=== PATIENT | male | born 1940 | race Hispanic/Latino ===

== ENCOUNTER 2018-12-05 10:49 | Emergency (ER) | payer OTHER ==
[~2018-12-05] VITALS: Ht 172.7 cm; Wt 90.7 kg
--- OUTSIDE RECORDS SUMMARY | 2018-12-05 10:53 | XMS REPORT | Continuity of Care Document ---
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 Name Role Phone [employer] Unavailable Unavailable Problems Problem Status Onset Date Classification Date Reported Comments Source HYPOTENSION Active 08/07/2018 [facility] ALTERED MENTAL STATUS, HYPOTHERMIA Active 08/07/2018 [facility] PNEUMONIA Active 03/27/2018 [facility] Severe protein-calorie malnutrition (Burger: less than 60% of standard weight) (disorder) Active Problem 08/11/2018 [facility] PNEUMONIA, UNSPECIFIED ORGANISM Active [facility] ALTERED MENTAL STATUS, UNSPECIFIED Active [facility] HYPOTHERMIA, INITIAL ENCOUNTER Active [facility] Medications Medication Details Route Status Patient Instructions Ordering Provider Order Date Source atorvastatin 40 mg, 1 tab, Route: PO, Drug form: TAB, Daily, Dosing Weight 81.818, kg, Start date: 08/09/18 9:00:00 CDT, Duration: 30 day, Stop date: 09/07/18 9:00:00 CDTNotes: (Same as: Lipitor) Inactive 08/09/2018 [facility] metoprolol tartrate 50 mg, 1 tab, Route: PO, Drug form: TAB, BID, Dosing Weight 81.818, kg, Start date: 08/08/18 21:00:00 CDT, Duration: 30 day, Stop date: 09/07/18 9:00:00 CDTNotes: (Same as: Lopressor) No Longer Active 08/09/2018 [facility] Calcium Carbonate 500 mg, 1 tab, Route: CHEW, Drug form: CHEWTAB, BID-Meals, Dosing Weight 81.818, kg, Start date: 08/08/18 17:00:00 CDT, Duration: 30 day, Stop date: 09/07/18 8:00:00 CDTNotes: (Same As: Tums) Calcium Carbonate 500 eq=512 mg elemental calcium Dose= mg calcium carbonate ( mg elemental calcium) No Longer Active 08/08/2018 [facility] Plavix 75 mg, 1 tab, Route: PO, Drug form: TAB, Daily, Dosing Weight 81.818, kg, Priority: NOW, Start date: 08/08/18 11:24:00 CDT, Duration: 30 day, Stop date: 09/07/18 9:00:00 CDTNotes: (Same As: Plavix) No Longer Active 08/08/2018 [facility] Aspirin 81 MG Enteric Coated Tablet 81 mg, 1 tab, Route: PO, Drug form: ECTAB, Daily, Dosing Weight 81.818, kg, Priority: NOW, Start date: 08/08/18 11:24:00 CDT, Duration: 30 day, Stop date: 09/07/18 9:00:00 CDTNotes: Do not crush or chew. (Same As: Ecotrin) No Longer Active 08/08/2018 [facility] Furosemide 40 MG Oral Tablet 40 mg=1 tab, PO, Daily, # 30 tab, 0 Refill(s) Active 08/08/2018 [facility] calcium carbonate 400 mg oral tablet, chewable 400 mg=1 tab, CHEW, BID, 0 Refill(s) Active 08/08/2018 [facility] lisinopril 2.5 mg oral tablet 2.5 mg=1 tab, PO, Daily, # 30 tab, 0 Refill(s) Active 08/08/2018 [facility] metoprolol tartrate 50 mg oral tablet 50 mg=1 tab, PO, BID, # 60 tab, 0 Refill(s) Active 08/08/2018 [facility] atorvastatin 40 mg oral tablet 40 mg=1 tab, PO, Daily, 0 Refill(s) Active 08/08/2018 [facility] Aspirin 81 MG Enteric Coated Tablet 81 mg=1 tab, PO, Daily, # 90 tab, 3 Refill(s) Active 08/08/2018 [facility] clopidogrel 75 MG Oral Tablet [Plavix] 75 mg=1 tab, PO, Daily, # 30 tab, 0 Refill(s) Active 08/08/2018 [facility] Trazodone 50 mg, 1 tab, Route: PO, Drug form: TAB, ONCE, Dosing Weight 81.818, kg, Start date: 08/07/18 23:10:00 CDT, Stop date: 08/07/18 23:10:00 CDTNotes: (Same As: Desyrel) Inactive 08/08/2018 [facility] Enoxaparin 30 mg, 0.3 mL, Route: SUB-Q, Drug form: INJ, [id number], Dosing Weight 77.273, kg, Start date: 08/07/18 18:33:00 CDT, Stop date: 09/05/18 18:33:00 CDTNotes: (Same as: Lovenox) No Longer Active 08/07/2018 [facility] Nitroglycerin 0.4 MG Sublingual Tablet [Nitrostat] 0.4 mg, 1 tab, Route: SL, Drug form: TAB, Q5Min, Dosing Weight 77.273, kg, PRN Chest Pain, Start date: 08/07/18 17:15:00 CDT, Duration: 3 doses or times, Stop date: Limited # of timesNotes: (Same as:Nitroquick, Nitrostat) "Do Not Crush" Sublingual tablet No Longer Active 08/07/2018 [facility] Terbutaline 0.25 mg, 0.25 mL, Route: SUB-Q, Drug form: INJ, Q6H, Dosing Weight 77.273, kg, PRN Bradycardia, Start date: 08/07/18 17:15:00 CDT, Duration: 30 day, Stop date: 09/06/18 17:14:00 CDTNotes: DO NOT USE IN ADMINISTRATIVE FELLOW AREA (Same As: Brethine) No Longer Active 08/07/2018 [facility] Lopressor 2.5 mg, 2.5 mL, Route: IVP, Drug form: INJ, Q3H, Dosing Weight 77.273, kg, PRN Tachycardia, Start date: 08/07/18 17:15:00 CDT, Duration: 30 day, Stop date: 09/06/18 17:14:00 CDTNotes: (Same as: Lopressor) Push over 2 minutes No Longer Active 08/07/2018 [facility] Morphine 2 mg, 1 mL, Route: IVP, Drug form: SOLN, Q2H, Dosing Weight 77.273, kg, PRN Chest Pain, Start date: 08/07/18 17:15:00 CDT, Duration: 30 day, Stop date: 09/06/18 17:14:00 CDT No Longer Active 08/07/2018 [facility] Hydralazine 10 mg, 0.5 mL, Route: IV, Drug form: INJ, Q4H, Dosing Weight 77.273, kg, PRN Hypertension, Start date: 08/07/18 17:15:00 CDT, Duration: 30 day, Stop date: 09/06/18 17:14:00 CDTNotes: (Same as: Apresoline) Push over 5 minutes No Longer Active 08/07/2018 [facility] Acetaminophen 325 MG / Hydrocodone Bitartrate 5 MG Oral Tablet [Rousseau 5/325] 1 tab, Route: PO, Drug Form: TAB, Dosing Weight 77.273, kg, Q6H, PRN Pain Score 4-6, Start date: 08/07/18 15:36:00 CDT, Duration: 30 day, Stop date: 09/06/18 15:35:00 CDTNotes: (Same as: Rousseau 325/5) Do not exceed 4gm/day of acetaminophen. No Longer Active 08/07/2018 [facility] Sodium Chloride 0.9% IV 1,000 mL 1,000 mL, Rate: 50 ml/hr, Infuse over: 20 hr, Route: IV, Dosing Weight 77.273 kg, Total Volume: 1,000, Start date: 08/07/18 15:34:00 CDT, Duration: 30 day, Stop date: 09/06/18 15:33:00 CDT, 1.92, m2 No Longer Active 08/07/2018 [facility] Dextrose 50% Syringe 25 gm, 50 mL, Route: IVP, Drug Form: INJ, Dosing Weight 77.273, kg, PRN, PRN Blood Glucose Results, Start date: 08/07/18 15:33:00 CDT, Duration: 30 day, Stop date: 09/06/18 15:32:00 CDT No Longer Active 08/07/2018 [facility] Glucagon 1 mg, Route: IM, Drug form: PDR/INJ, PRN, Dosing Weight 77.273, kg, PRN Blood Glucose Results, Start date: 08/07/18 15:33:00 CDT, Duration: 30 day, Stop date: 09/06/18 15:32:00 CDT No Longer Active 08/07/2018 [facility] Acetaminophen 650 mg, 2 tab, Route: PO, Drug form: TAB, Q4H, Dosing Weight 77.273, kg, PRN Pain 1-3/Temp > 100.4 F, Start date: 08/07/18 15:33:00 CDT, Duration: 30 day, Stop date: 09/06/18 15:32:00 CDTNotes: Do not exceed 4 gm/day. (Same as: Tylenol) No Longer Active 08/07/2018 [facility] Coricidin HBP Nighttime Multi-Symptom Cold 1 tab, PO, Q6H, PRN Cough, 0 Refill(s) Inactive 08/07/2018 [facility] rivaroxaban 15 MG Oral Tablet [Xarelto] 15 mg=1 tab, PO, QPM, 0 Refill(s) Inactive 08/07/2018 [facility] benazepril 40 mg oral tablet 40 mg=1 tab, PO, Daily, 0 Refill(s) Inactive 08/07/2018 [facility] Aspirin 325 mg, 1 tab, Route: PO, Drug form: TAB, ONCE, Dosing Weight 77.273, kg, Priority: STAT, Start date: 08/07/18 11:55:00 CDT, Stop date: 08/07/18 11:55:00 CDTNotes: Take with food. Inactive 08/07/2018 [facility] Keppra 1,000 mg, Route: IV, ONCE, Dosing Weight 77.273, kg, Start date: 08/07/18 10:24:00 CDT, Stop date: 08/07/18 10:24:00 CDTNotes: Same as Keppra Mix with 100 mL NS, LR or D5W MEDICATION WASTE Product Size: 500 mg Product Wasted: ___ mg Inactive 08/07/2018 [facility] Rocephin + sterile water 10 mL 1 gm, Route: IVP, ONCE, Dosing Weight 77.273, kg, Priority: STAT, Start date: 08/07/18 10:24:00 CDT, Stop date: 08/07/18 10:24:00 CDT, ABX Indication: Other (specify in Comments)Notes: (Same As: Rocephin). Use with 100 mL NS and infuse over 30 min MEDICATION WASTE Product Size: 1000 mg Product Wasted: ___ mg Inactive 08/07/2018 [facility] Sodium Chloride 0.9% (Bolus) IV 1,000 mL, 1000 ml/hr, Infuse Over: 1 hr, Route: IV, 1,000, Drug form: INJ, ONCE, Priority: STAT, Dosing Weight 77.273 kg, Start date: 08/07/18 10:24:00 CDT, Stop date: 08/07/18 10:24:00 CDT Inactive 08/07/2018 [facility] Saline Flush 0.9% 10 mL, Route: IVP, Drug Form: INJ, Dosing Weight 77.273, kg, PRN, PRN Line Flush, Start date: 08/07/18 10:24:00 CDT, Duration: 30 day, Stop date: 09/06/18 10:23:00 CDTNotes: Same as: BD Posiflush Sterile No Longer Active 08/07/2018 [facility] Allergies, Adverse Reactions, Alerts Substance Category Reaction Severity Reaction type Status Date Reported Comments Source No Known Medication Allergies Assertion Drug allergy [facility] Immunizations No Data Provided for This Section Results Order Name Results Value Reference Range Date Interpretation Comments Source CHEM PANEL Magnesium Lvl 2.4 1.8 - 2.4 08/09/2018 [facility] CHEM PANEL BUN 30 7 - 22 08/09/2018 [facility] CHEM PANEL Glucose Lvl 81 70 - 99 08/09/2018 [facility] CHEM PANEL Creatinine Lvl 1.68 0.50 - 1.40 08/09/2018 [facility] CHEM PANEL Calcium Lvl 8.3 8.5 - 10.5 08/09/2018 [facility] CHEM PANEL CO2 21 24 - 32 08/09/2018 [facility] CHEM PANEL AGAP 14.3 10.0 - 20.0 08/09/2018 [facility] CHEM PANEL eGFR 38 08/09/2018 Result Comment: The eGFR is calculated using the CKD-EPI formula. In most young, healthy individuals the eGFR will be >90 mL/min/1.73m2. The eGFR declines with age. An eGFR of 60-89 may be normal in some populations, particularly the elderly, for whom the CKD-EPI formula has not been extensively validated. Use of the eGFR is not recommended in the following populations:

Individuals with unstable creatinine concentrations, including patients and those with serious co-morbid conditions.

Patients with extremes in muscle mass or diet.

The data above are obtained from the National Kidney Disease Education Program (NKDEP) which additionally recommends that when the eGFR is used in patients with extremes of body mass index for purposes of drug dosing, the eGFR should be multiplied by the estimated BMI. [facility] CHEM PANEL Sodium Lvl 143 135 - 145 08/09/2018 [facility] CHEM PANEL Chloride Lvl 112 95 - 109 08/09/2018 [facility] CHEM PANEL Potassium Lvl 4.3 3.5 - 5.1 08/09/2018 [facility] CHEM PANEL Magnesium Lvl 2.2 1.8 - 2.4 08/08/2018 [facility] CHEM PANEL Bili Total 0.5 0.2 - 1.3 08/08/2018 [facility] CHEM PANEL Alk Phos 126 39 - 136 08/08/2018 [facility] CHEM PANEL AST 10 0 - 37 08/08/2018 [facility] CHEM PANEL ALT 20 0 - 65 08/08/2018 [facility] CHEM PANEL Albumin Lvl 3.1 3.5 - 5.0 08/08/2018 [facility] CHEM PANEL Bili Direct <0.1 0.0 - 0.3 08/08/2018 [facility] CHEM PANEL Bili Indirect >0.4 0.0 - 1.0 08/08/2018 [facility] CHEM PANEL A/G Ratio 0.9 0.7 - 1.6 08/08/2018 [facility] CHEM PANEL Globulin 3.6 2.7 - 4.2 08/08/2018 [facility] CHEM PANEL Total Protein 6.7 6.4 - 8.4 08/08/2018 [facility] ELECTROLYTES AGAP 13.0 10.0 - 20.0 08/08/2018 [facility] ELECTROLYTES Calcium Lvl 8.1 8.5 - 10.5 08/08/2018 [facility] ELECTROLYTES Chloride Lvl 111 95 - 109 08/08/2018 [facility] ELECTROLYTES CO2 22 24 - 32 08/08/2018 [facility] ELECTROLYTES Sodium Lvl 142 135 - 145 08/08/2018 [facility] ELECTROLYTES Potassium Lvl 4.0 3.5 - 5.1 08/08/2018 [facility] ELECTROLYTES BUN 43 7 - 22 08/08/2018 [facility] ELECTROLYTES Creatinine Lvl 1.97 0.50 - 1.40 08/08/2018 [facility] ELECTROLYTES eGFR 31 08/08/2018 Result Comment: The eGFR is calculated using the CKD-EPI formula. In most young, healthy individuals the eGFR will be >90 mL/min/1.73m2. The eGFR declines with age. An eGFR of 60-89 may be normal in some populations, particularly the elderly, for whom the CKD-EPI formula has not been extensively validated. Use of the eGFR is not recommended in the following populations:

Individuals with unstable creatinine concentrations, including patients and those with serious co-morbid conditions.

Patients with extremes in muscle mass or diet.

The data above are obtained from the National Kidney Disease Education Program (NKDEP) which additionally recommends that when the eGFR is used in patients with extremes of body mass index for purposes of drug dosing, the eGFR should be multiplied by the estimated BMI. [facility] ELECTROLYTES Glucose Lvl 74 70 - 99 08/08/2018 [facility] CARDIAC ENZYMES Troponin-I 0.12 0.00 - 0.40 08/08/2018 [facility] CARDIAC ENZYMES BNP 328 <=100 pg/mL 08/07/2018 [facility] CHEM PANEL Uric Acid 8.5 3.8 - 8.0 08/07/2018 [facility] CHEM PANEL Vitamin D, 25-OH, Total 39.1 30.0 - 100.0 08/07/2018 [facility] CHEM PANEL Phosphorus 3.7 2.5 - 4.5 08/07/2018 [facility] CHEM PANEL Magnesium Lvl 2.5 1.8 - 2.4 08/07/2018 [facility] HEMATOLOGY Sed Rate 31 0 - 15 08/07/2018 [facility] IMMUNOLOGY CRP, High Sensitivity 4.4 08/07/2018 [facility] IMMUNOLOGY Prealbumin 16.6 18.0 - 45.0 08/07/2018 [facility] LIPIDS VLDL 22 08/07/2018 [facility] LIPIDS Chol 104 <=199 mg/dL 08/07/2018 [facility] LIPIDS LDL (Calculated) 43 <=99 mg/dL 08/07/2018 [facility] LIPIDS Trig 111 <=149 mg/dL 08/07/2018 [facility] LIPIDS HDL 39 >=61 mg/dL 08/07/2018 [facility] LIPIDS CHD Risk 2.67 4.00 - 7.30 08/07/2018 [facility] SPECIAL CHEMISTRY Hgb A1C 6.1 <=5.6 % 08/07/2018 [facility] CARDIAC ENZYMES Troponin-I 0.11 0.00 - 0.40 08/07/2018 [facility] URINE AND STOOL UA Color Ltyellow 08/07/2018 [facility] URINE AND STOOL UA Urobilinogen <=1.0 mg/dL 0.1 - 1.0 08/07/2018 [facility] URINE AND STOOL UA Sq Epi None Seen 08/07/2018 [facility] URINE AND STOOL UA Hyal Cast 3 0 - 2 08/07/2018 [facility] URINE AND STOOL UA Leuk Est Negative (08/07/18 11:01 AM) Negative 08/07/2018 [facility] URINE AND STOOL UA Nitrite Negative (08/07/18 11:01 AM) Negative 08/07/2018 [facility] URINE AND STOOL UA WBC 1 0 - 5 08/07/2018 [facility] URINE AND STOOL UA RBC 1 0 - 2 08/07/2018 [facility] URINE AND STOOL UA Glucose Negative mg/dL Negative mg/dL 08/07/2018 [facility] URINE AND STOOL UA Protein Negative mg/dL Negative mg/dL 08/07/2018 [facility] URINE AND STOOL UA Bili Negative *NA* (08/07/18 11:01 AM) Negative 08/07/2018 [facility] URINE AND STOOL UA Ketones Negative mg/dL Negative mg/dL 08/07/2018 [facility] URINE AND STOOL UA Blood Negative (08/07/18 11:01 AM) Negative 08/07/2018 [facility] URINE AND STOOL UA Spec Grav 1.008 <=1.030 08/07/2018 [facility] URINE AND STOOL UA Turbidity Clear (08/07/18 11:01 AM) Clear 08/07/2018 [facility] URINE AND STOOL UA pH 6.0 5.0 - 8.0 08/07/2018 [facility] BLOOD BANK RESULTS Antibody Scrn Negative (08/07/18 10:34 AM) 08/07/2018 [facility] BLOOD BANK RESULTS ABO/Rh O POS 08/07/2018 [facility] CARDIAC ENZYMES Troponin-I 0.10 0.00 - 0.40 08/07/2018 [facility] CARDIAC ENZYMES BNP 192 <=100 pg/mL 08/07/2018 [facility] CHEM PANEL Lactic Acid Lvl 1.4 0.5 - 2.2 08/07/2018 [facility] CHEM PANEL Ammonia 18.0 <=45.0 uMol/L 08/07/2018 [facility] ELECTROLYTES AGAP 13.8 10.0 - 20.0 08/07/2018 [facility] ELECTROLYTES Globulin 3.9 2.7 - 4.2 08/07/2018 [facility] ELECTROLYTES B/C Ratio 19 6 - 25 08/07/2018 [facility] ELECTROLYTES A/G Ratio 0.9 0.7 - 1.6 08/07/2018 [facility] ELECTROLYTES eGFR 23 08/07/2018 Result Comment: The eGFR is calculated using the CKD-EPI formula. In most young, healthy individuals the eGFR will be >90 mL/min/1.73m2. The eGFR declines with age. An eGFR of 60-89 may be normal in some populations, particularly the elderly, for whom the CKD-EPI formula has not been extensively validated. Use of the eGFR is not recommended in the following populations:

Individuals with unstable creatinine concentrations, including patients and those with serious co-morbid conditions.

Patients with extremes in muscle mass or diet.

The data above are obtained from the National Kidney Disease Education Program (NKDEP) which additionally recommends that when the eGFR is used in patients with extremes of body mass index for purposes of drug dosing, the eGFR should be multiplied by the estimated BMI. [facility] ELECTROLYTES ALT 23 0 - 65 08/07/2018 [facility] ELECTROLYTES AST 11 0 - 37 08/07/2018 [facility] ELECTROLYTES Alk Phos 132 39 - 136 08/07/2018 [facility] ELECTROLYTES Bili Total 0.5 0.2 - 1.3 08/07/2018 [facility] ELECTROLYTES Chloride Lvl 109 95 - 109 08/07/2018 [facility] ELECTROLYTES Glucose Lvl 122 70 - 99 08/07/2018 [facility] ELECTROLYTES BUN 50 7 - 22 08/07/2018 [facility] ELECTROLYTES Potassium Lvl 4.8 3.5 - 5.1 08/07/2018 [facility] ELECTROLYTES Creatinine Lvl 2.59 0.50 - 1.40 08/07/2018 [facility] ELECTROLYTES Sodium Lvl 142 135 - 145 08/07/2018 [facility] ELECTROLYTES CO2 24 24 - 32 08/07/2018 [facility] ELECTROLYTES Total Protein 7.3 6.4 - 8.4 08/07/2018 [facility] ELECTROLYTES Calcium Lvl 8.5 8.5 - 10.5 08/07/2018 [facility] ELECTROLYTES Albumin Lvl 3.4 3.5 - 5.0 08/07/2018 [facility] HEMATOLOGY WBC 8.5 3.7 - 10.4 08/07/2018 [facility] HEMATOLOGY Hct 35.5 42.0 - 54.0 08/07/2018 [facility] RBC 3.81 4.70 - 6.10 08/07/2018 [facility] Hgb 11.7 14.0 - 18.0 08/07/2018 [facility] RDW 14.8 11.5 - 14.5 08/07/2018 [facility] MCV 93.3 80.0 - 94.0 08/07/2018 [facility] MCHC 32.8 32.0 - 36.0 08/07/2018 [facility] MCH 30.6 27.0 - 31.0 08/07/2018 [facility] MPV 8.7 7.4 - 10.4 08/07/2018 [facility] Platelet 188 133 - 450 08/07/2018 [facility] INR 1.01 0.85 - 1.17 08/07/2018 [facility] PT 13.1 12.0 - 14.7 08/07/2018 [facility] PTT 29.3 22.9 - 35.8 08/07/2018 [facility] Basophils 1.0 0.0 - 1.0 08/07/2018 [facility] Neutrophils # 5.2 1.5 - 8.1 08/07/2018 [facility] Eosinophils 8.6 0.0 - 4.0 08/07/2018 [facility] Monocytes 6.9 2.0 - 12.0 08/07/2018 [facility] Lymphocytes # 1.9 1.0 - 5.5 08/07/2018 [facility] Segs 61.1 45.0 - 75.0 08/07/2018 [facility] Lymphocytes 22.4 20.0 - 40.0 08/07/2018 [facility] Eosinophils # 0.7 0.0 - 0.5 08/07/2018 [facility] Basophils # 0.1 0.0 - 0.2 08/07/2018 [facility] Monocytes # 0.6 0.0 - 0.8 08/07/2018 [facility] TOXICOLOGY Ethanol Lvl <3 08/07/2018 [facility] TOXICOLOGY Etoh (%) <0.003 08/07/2018 [facility] Pathology Reports No Data Provided for This Section Diagnostic Reports Report Value Date Source Neck wo contrast MRA Patient Name: MARY CARMNE LEGGETT : 1940; Age: 77 years y/o Male MR: [id number] Study: Neck wo contrast MRA 08/08/2018 9:57 CDT Clinical Indication: - left vertebral artery retrograde flow on doppler; Comparison: Ultrasound of the carotids dated 08/07/2018 Technique: Magnetic resonance angiography of the neck was performed without gadolinium contrast with time of flight technique. 3-D maximum intensity projection images were obtained. FINDINGS: The aortic arch is not well assessed on this study due to noncontrast nature of the examination motion artifacts. Bilateral common carotid arteries are widely patent. Bilateral internal carotid arteries and carotid bulb regions are patent without significant stenosis by NASCET criteria. Bilateral external carotid arteries are patent. There is no flow signal in the left vertebral artery suggestive of severe stenosis or occlusion. There is retrograde filling of the V4 segment. Accurate characterization by a CTA of the neck would be beneficial. The source images show no evidence of carotid or vertebral artery dissection. Any reported ICA stenoses directly reference the distal internal carotid diameter as the denominator for stenosis measurement. (NASCET criteria) IMPRESSION: No flow signal in the V1-V3 segments left vertebral artery suggestive of severe stenosis and/or occlusion. There is retrograde filling V4 segment. The aortic arch and the left subclavian artery are not well assessed on this study. Complete characterization with a contrast-enhanced CTA of the neck is recommended. No cervical carotid artery stenosis. 08/08/2018 [facility] Carotid artery Doppler bilat US Procedure: Carotid Ultrasound. Clinical Indication: Syncope. Comparison: None. TECHNIQUE: Mckeon-scale, color Doppler and spectral Doppler of the carotid arteries was performed. Any reported ICA stenoses indirectly reference the distal internal carotid diameter as the denominator for the stenosis measurement, utilizing consensus panel criteria. FINDINGS: RIGHT: There is minimal plaque in the right common carotid artery, carotid bulb and right internal carotid artery. ICA PSV 75 cm/sec CCA PSV 119 cm/sec ICA/CCA ratio 0.63 Vertebral flow is antegrade. External carotid artery is patent. LEFT: There is minimal plaque in the left common carotid artery, carotid bulb and left internal carotid artery. ICA PSV 66 cm/sec CCA PSV 116 cm/sec ICA/CCA ratio 0.56 Vertebral flow is retrograde. External carotid artery is patent. IMPRESSION: 1. RIGHT: ICA stenosis <50 % by velocity criteria. 2. LEFT: ICA stenosis <50 % by velocity criteria. 3. Retrograde flow in the left vertebral artery. Consensus panel Doppler US criteria for diagnosis of ICA stenosis: Stenosis (%) ICA PSV (cm/sec) ICA/CCA ratio <50 <125 <2.0 50-69 125-230 2.0-4.0 >70 but less than >230 >4.0 near occlusion Near occlusion High, low, or Variable undetectable [id number] 08/07/2018 [facility] Brain wo contrast MRI EXAM: MRI BRAIN WITHOUT CONTRAST DATE: 08/07/2018 3:34 PM CDT INDICATION: - Syncope, vs stroke vs other ADDITIONAL INFORMATION AND CONTRAST: None. COMPARISON: CT head of 08/07/2018. TECHNIQUE: Multiplanar, mutisequence MRI of the brain without contrast. FINDINGS: Diffusion weighted images demonstrate no focal signal abnormality. No acute intracranial hemorrhage detected. Diffuse cerebral atrophy and advanced severe chronic small vessel ischemic change. Small old bilateral basal ganglia infarcts are present. The ventricles are normal in size and symmetric. No extra- axial fluid collection identified. Mckeon-white distinction is preserved. No mass lesion or midline shift detected. Slow flow/occlusion of the left transverse sinus and jugular vein. The remaining intracranial arterial and venous structures demonstrate normal flow voids. Mild mucosal thickening of the ethmoid air cells. The mastoid air cells are clear. IMPRESSION: 1. No definite acute territorial infarct or intracranial hemorrhage detected. 2. Diffuse cerebral atrophy and advanced severe chronic small vessel ischemic change. Small old bilateral basal ganglia infarcts are present. SL: [id number] 08/07/2018 [facility] Chest 1view DX Chest 1view DX 08/07/2018 10:24 CDT Ordering Physician: Harley Vela MD CLINICAL HISTORY: - ams; TECHNIQUE: AP view of the chest was obtained. COMPARISON: 03/31/2018 FINDINGS: Mild lingular scarring is present.. No radiographically detectable pneumothorax is present. Cardiomediastinal silhouette is unchanged. Bones are unchanged. IMPRESSION: No acute abnormality of the chest. Moderate cardiomegaly. SL: [id number] 08/07/2018 [facility] contrast CT STUDY: Brain wo contrast CT 08/07/2018 10:24 CDT Ordering Physician: Harley Vela MD Patient Name: MARY CARMEN LEGGETT MR: [id number] : 1940; Age: 77 years y/o Male Clinical Indication: Altered mental status. Seizure. Comparison: None TECHNIQUE: Multiple contiguous transaxial noncontrast CT images were obtained through the head. Coronal and sagittal reformatted images were prepared. CT imaging performed at this location utilizes radiation dose optimization techniques which include one or more of the following: -Automated exposure control -Adjustment of the mA and/or kV according to patient size -Use of iterative reconstruction technique DLP: 982.82 mGy-cm FINDINGS: BRAIN PARENCHYMA: 1. 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 2. No evidence of acute intracranial hemorrhage, mass lesion, mass effect, midline shift, or extra-axial fluid collection. 3. Old bilateral basal ganglia lacunar infarctions. 4. Subacute to old bilateral thalamic lacunar infarctions. 5. Mild to moderate calcification in both internal carotid artery siphons and vertebral arteries. VENTRICLES: The lateral ventricles, third ventricle, fourth ventricle, and basilar cisterns are appropriate for degree of atrophy present. PARANASAL SINUSES: Mild to moderate diffuse mucoperiosteal thickening in the ethmoid sinus. The visualized portions of the remaining paranasal sinuses are clear. MASTOIDS: Clear. ORBITS: Suspected old healed injury or postoperative change in the left globe and anterior orbital soft tissues. SOFT TISSUES: No significant abnormality. SKULL: No acute fracture or suspicious osseous lesion. IMPRESSION: 1. 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 2. Subacute to old bilateral thalamic lacunar infarctions. 3. Old bilateral basal ganglia lacunar infarctions. 4. No acute intracranial abnormality. 5. Mild chronic sinusitis. 6. Suspected old healed injury or postoperative change in the left globe and anterior orbital soft tissues. SL: [id number] 08/07/2018 [facility] Clinical Indication: - CKD; Comparison: None TECHNIQUE: Multiple longitudinal and transverse real time sonographic images of the kidneys and urinary bladder are obtained. FINDINGS: KIDNEY: The right kidney measures 8.5 x 3.8 x 3.6 cm. The left kidney measures 9 x 5 x 3.9 cm. The kidneys are normal in size, shape, contour, and position. The cortices are normal in thickness and the corticomedullary differentiation is maintained. There is no hydronephrosis, nephrolithiasis, or abnormal perinephric collections. A 1.6 x 1.8 x 1.8 cm simple cyst is present at the inferior pole the left kidney. BLADDER: Scanning through the pelvis reveals the bladder to be partially distended with anechoic urine. VASCULAR: The visualized portions of the aorta and IVC appear unremarkable. The bilateral proximal common iliac arteries are secured by bowel gas shadowing. ASCITES: No ascites noted. IMPRESSION: 1. A 1.8 cm simple left renal cyst. 2. No hydronephrosis. SL: [id number] 04/01/2018 [facility] 1view DX Clinical Indication: - SOB; Comparison: None FINDINGS: AP chest radiographs shows normal lung volumes with left lower lobe airspace disease. There is no effusion or pneumothorax. The heart size and pulmonary vasculature are normal. The trachea is midline. There are no clinically significant osseous abnormalities noted. There are sternal wires in stable position. IMPRESSION: 1. Mild left lower lobe atelectasis versus infiltrate. 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 COMPARISON: None. TECHNIQUE: Noncontrast helical CT imaging of the chest was performed. Axial, sagittal and coronal multiplanar reconstructions provided. CT Radiation Dose: NAJ=822.61 mGy-cm FINDINGS: LUNGS AND PLEURA: Nonspecific groundglass opacities are noted within the right lung apex. Small bilateral pleural effusions and associated atelectatic changes are visualized. A calcified granuloma is present within the left lower lobe. No pneumothorax. AIRWAY: The central airway is normal. SYSTEMIC VESSELS: There is atherosclerotic calcification of the aorta without evidence for aneurysmal dilatation. HEART: The heart is moderately enlarged, with prominent coronary artery calcification versus stenting. Prior coronary artery bypass grafting is also suspected. MEDIASTINUM: No significant mediastinal lymphadenopathy. VISUALIZED UPPER ABDOMEN: The patient is status post cholecystectomy. Mild nonspecific perinephric stranding is identified. A partially calcified lesion of the pancreatic tail is noted on series 2 image 88. OSSEOUS STRUCTURES: Median sternotomy wires. Degenerative changes of the thoracic spine without acute osseous abnormality. SOFT TISSUE: Subcutaneous lesion of the right shoulder, series 2 image 8. IMPRESSION: 1. Nonspecific groundglass opacities within the right upper lobe, likely related to focal pneumonitis. 2. Small bilateral pleural effusions with associated atelectatic change. 3. Moderate enlargement of the heart without evidence for a pericardial effusion. 4. Partially calcified lesion of the pancreatic tail, incompletely characterized. 5. Mild perinephric stranding, possibly related to medical renal disease. 6. Nonspecific subcutaneous lesion of the right anterior shoulder measuring 3 cm. SL: [id number] 03/27/2018 [facility] Consultation Notes No Data Provided for This Section Discharge Summaries No Data Provided for This Section History and Physicals No Data Provided for This Section Vital Signs Vital Sign Value Date Comments Source Systolic (mm Hg) 149 08/09/2018 [facility] Diastolic (mm Hg) 67 08/09/2018 [facility] Respitory Rate 17 08/09/2018 [facility] Heart Rate 58 08/09/2018 [facility] Temperature Oral (F) 97.5 F 08/09/2018 [facility] Respitory Rate 17 08/09/2018 [facility] Systolic (mm Hg) 127 08/09/2018 [facility] Diastolic (mm Hg) 62 08/09/2018 [facility] Temperature Oral (F) 97.6 F 08/09/2018 [facility] Heart Rate 96 08/09/2018 [facility] Weight 72.784 08/09/2018 [facility] Respitory Rate 18 08/09/2018 [facility] Systolic (mm Hg) 165 08/09/2018 [facility] Diastolic (mm Hg) 76 08/09/2018 [facility] Heart Rate 66 08/09/2018 [facility] Temperature Oral (F) 98.1 F 08/09/2018 [facility] Weight 81.818 08/07/2018 [facility] BMI Calculated 29.11 08/07/2018 [facility] Height 167.64 cm 08/07/2018 [facility] Height 167.64 cm 08/07/2018 [facility] BMI Calculated 27.5 08/07/2018 [facility] Weight 77.273 08/07/2018 [facility] Encounters Location Location Details Encounter Type Encounter Number Reason For Visit Attending Provider ADM Date DC Date Status Source [facility] Inpatient [id number] Casimiro Curtis 08/07/2018 08/10/2018 [facility] Procedures Procedure Code Date Perfomer Comments Source Bypass<sup>1</sup> [id number] heart [facility] Assessment and Plan Assessment and Plan Date Source Extracted from:Title: Clinical Document Author: Gricel Bolivar DO Date: 08/09/18 Progress Daily [facility] KranthiGricel Hoyt DO RM: 131 - 1P, SE C1A MARY CARMEN LEGGETT 77y (: 1940) M Attending: Casimiro Curtis MD Service: Internal Medicine PCP [facility]ASTON FELDMAN Reason for Admission: ALTERED MENTAL STATUS, HYPOTHERMIA Working DRG: Code status: None Specified=FULL CODE Current diet: Isolation: No Isolation/Standard Precautions Allergies: No Known Medication Allergies SUBJECTIVE SLEEPY BUT NO COMPLAINTS EXAM VS NOTED GENERAL: NAD LUNGS: Have a couple of rhonchi good deep breath. CARDIAC: RRR. chest well-healed bypass scar. ABDOMEN: Obese but bowel sounds are audible. EXTREMITIES: Intact with only trace edema. PLAN and TREATMENT MONITOR FLUID STATUS CONSIDER ANTICOAG BUT THINK DANGER OF FALL MORE THAN PAFIB CVA. WITH MENTAL STATUS NOT A GOOD CANDIDATE FOR ICD. DIAGNOSES and PROBLEMS ? SYNCOPE HX CVA SEVERE STENOSIS LEFT VERTEBRAL A DEMENTIA HTN CRD STAGE 3 PAFIB MOD DILATED LA 4.8CM CHRONIC SEVERE LV SYSTOLIC and DIASTOLIC DYSFUNCTION I50.43 EF 2 MILD TRICUSPID VALVE INSUFFICIENCY WITH NORMAL PASP=33.28 [facility] ESSENTIALLY UNCHANGED FROM 03/28/2018 STUDY ECHO 08/08/2018 1) SEVERE LV SYSTOLIC AND DIASTOLIC DYSFUNCTION 2) EJECTION FRACTION 23% WITH SEVERE GLOBAL HYPOKINESIS 3) MODERATELY DILATED LEFT ATRIUM LA 4.8 CM 4) TRACE MITRAL VALVE INSUFFICIENCY 5) MILD TRICUSPID VALVE INSUFFICIENCY 6) NORMAL PASP=33.28 [facility] 7) NO VALVULAR STENOSIS 8) ESSENTIALLY UNCHANGED FROM 03/28/2018 STUDY Ready for Discharge (Yes/No)? Cortes still necessary (Yes/No): Line still necessary (Yes/No): 24hr Labs 08/09 0510 Glucose Lvl 81 BUN 30 H Creatinine Lvl 1.68 H Sodium Lvl 143 Potassium Lvl 4.3 Chloride Lvl 112 H CO2 21 L AGAP 14.3 Calcium Lvl 8.3 L eGFR 38 Magnesium Lvl 2.4 08/07 1833 TSH 1.400 T3 Uptake 31 T4 6.5 FTI 2.0 Vitamin D, 25-OH, Tota 39.1 CRP, High Sensitivity 4.4 Prealbumin 16.6 L Vitals Tmp(F) Pulse BP RR SpO2 FIO2 08/09 07:27 98.1 66 165/76 18 97 --- 08/09 03:24 98.4 78 149/84 18 97 --- 08/08 23:34 98.7 66 150/83 18 98 --- 08/08 19:36 98.3 71 164/75 18 99 --- 08/08 15:43 98.4 60 150/75 17 99 --- 24 Hr Tmax: 98.7F (37.06c) at 08/08 23:34 Vital Signs are the last 5 in the past 48 hours. Date Wt(kg) Wt(lb) Ht(cm) Ht(in) Method 08/07 (initial) 77.27 170.00 Estimated 08/07 167.64 66.00 Stated I&O Record In Out Bal 08/08 24hr Tot 500 0 500 08/07 24hr Tot 1950 0 1950 Medications (18) Active Scheduled Meds (6): 08/08/18 aspirin (aspirin 81 mg tablet, enteric coated) 81 mg PO Daily 08/09/18 atorvastatin 40 mg PO Daily 08/08/18 calcium carbonate 500 mg CHEW BID-Meals 08/08/18 clopidogrel (Plavix) 75 mg PO Daily 08/07/18 enoxaparin 30 mg SUB-Q [id number] 08/08/18 metoprolol (metoprolol tartrate) 50 mg PO BID Unscheduled Meds: None PRN Meds (11): 08/07/18 Dextrose 50% in Water IV (Dextrose 50% Syringe) 12.5 gm IVP PRN 08/07/18 Dextrose 50% in Water IV (Dextrose 50% Syringe) 25 gm IVP PRN 08/07/18 acetaminophen-hydrocodone (Rousseau 5/325 oral tablet) 1 tab PO Q6H 08/07/18 acetaminophen 650 mg PO Q4H 08/07/18 glucagon 1 mg IM PRN 08/07/18 hydrALAZINE 10 mg IV Q4H 08/07/18 metoprolol (Lopressor) 2.5 mg IVP Q3H 08/07/18 morphine Sulfate 2 mg IVP Q2H 08/07/18 nitroglycerin (Nitrostat 0.4 mg sublingual tablet) 0.4 mg SL Q5Min 08/07/18 sodium chloride (Saline Flush 0.9%) 10 mL IVP PRN 08/07/18 terbutaline 0.25 mg SUB-Q Q6H One Time Meds (1): 08/07/18 (Completed) trazodone 50 mg PO ONCE Continuous Infusions: None Extracted from:Title: Clinical Document Author: Adrian Cao MD Date: 08/09/18 VASCULAR SURGERY CONSULT NOTE Adrian Cao MD FACS DATE OF CONSULT:08/09/2018 DATE OF : 1940 REFERRING PHYSICIAN:Dr Lin Montoya REASON FOR THE CONSULT:Vertebral artery occlusion HISTORY OF PRESENT ILLNESS: This is a 77 year old male with history of mild dementia, CHF and CAD. He has history of CABG and coronary stents. He was noted to have syncope and was admitted for workup. Left vertebral artery occlusion was noted. He denies current dizziness or difficulty in balance. He denies TIAs or amaurosis fugax REVIEW OF SYSTEM: RESPIRATORY: No cough, no dyspnea CARDIOVASCULAR: No chest pain or pressure. No palpitations GASTROINTESTINAL: No dysphagia, odynophagia, bright blood per rectum, heartburn, diarrhea or constipation. No nausea, vomiting, or hemetemesis MUSCULOSKELETAL: No myalgias, arthralgias, joint swelling. NEUROLOGICAL: No vertigo or disturbance of balance or coordination.No motor or sensory complaints. No headache.No amaurosis fugax, no TIAs GENITOURINARY: No dysuria, urgency or urinary frequency. No incontinence. DERMATOLOGIC: No complaint of skin lesions or rashes. No change ALLERGIES: Allergies (1) Active Reaction No Known Medication Allergies None documented MEDICATION LIST: Scheduled Meds (6): 08/08/18 aspirin (aspirin 81 mg tablet, enteric coated) 81 mg PO Daily 08/09/18 atorvastatin 40 mg PO Daily 08/08/18 calcium carbonate 500 mg CHEW BID-Meals 08/08/18 clopidogrel (Plavix) 75 mg PO Daily 08/07/18 enoxaparin 30 mg SUB-Q [id number] 08/08/18 metoprolol (metoprolol tartrate) 50 mg PO BID PAST MEDICAL HISTORY No qualifying data available PAST SURGICAL HISTORY: Bypass SOCIAL HISTORY: Alcohol Details: Past, Type Beer. Tobacco Details: Use: Former smoker. Started age 16.0 Years. Stopped age 68 Years. Previous treatment: None. Ready to change: No. Household tobacco concerns: No. Tobacco smoke exposure: None. Did the Patient Smoke Cigarettes Anytime During the Last 365 Days? No. Cessation Counseling Provided? No. PHYSICAL EXAM: Vitals Tmp(F) Pulse BP RR SpO2 FIO2 08/09 07:27 98.1 66 165/76 18 97 --- 08/09 03:24 98.4 78 149/84 18 97 --- 08/08 23:34 98.7 66 150/83 18 98 --- 08/08 19:36 98.3 71 164/75 18 99 --- 08/08 15:43 98.4 60 150/75 17 99 --- 24 Hr Tmax: 98.7F (37.06c) at 08/08 23:34 Vital Signs are the last 5 in the past 48 hours. HEAD AND NECK:NCAT EYES:EOMI CHEST:CTA CARDIAC:RRR ABDOMEN:Soft VASCULAR EXAM:Well perfused extremities LABORATORY DATA: Labs (Last four charted values) WBC 8.5 (AUGUST 07) Hgb L 11.7 (AUGUST 07) Hct L 35.5 (AUGUST 07) Plt 188 (AUGUST 07) Na 143 (AUGUST 09) 142 (AUGUST 08) 142 (AUGUST 07) K 4.3 (AUGUST 09) 4.0 (AUGUST 08) 4.8 (AUGUST 07) CO2 L 21 (AUGUST 09) L 22 (AUGUST 08) 24 (AUGUST 07) Cl H 112 (AUGUST 09) H 111 (AUGUST 08) 109 (AUGUST 07) Cr H 1.68 (AUGUST 09) H 1.97 (AUGUST 08) H 2.59 (AUGUST 07) BUN H 30 (AUGUST 09) H 43 (AUGUST 08) H 50 (AUGUST 07) Glucose Random 81 (AUGUST 09) 74 (AUGUST 08) H 122 (AUGUST 07) Mg 2.4 (AUGUST 09) 2.2 (AUGUST 08) H 2.5 (AUGUST 07) Phos 3.7 (AUGUST 07) Ca L 8.3 (AUGUST 09) L 8.1 (AUGUST 08) 8.5 (AUGUST 07) PT 13.1 (AUGUST 07) INR 1.01 (AUGUST 07) PTT 29.3 (AUGUST 07) Troponin 0.12 (AUGUST 07) 0.11 (AUGUST 07) 0.10 (AUGUST 07) RADIOLOGIC AND VASCULAR IMAGING: MRA neck: IMPRESSION: No flow signal in the V1-V3 segments left vertebral artery suggestive of severe stenosis and/or occlusion. There is retrograde filling V4 segment. The aortic arch and the left subclavian artery are not well assessed on this study. Complete characterization with a contrast-enhanced CTA of the neck is recommended. No cervical carotid artery stenosis. MRI Brain: IMPRESSION: 1. No definite acute territorial infarct or intracranial hemorrhage detected. 2. Diffuse cerebral atrophy and advanced severe chronic small vessel ischemic change. Small old bilateral basal ganglia infarcts are present. Carotid duplex scan: IMPRESSION: 1. RIGHT: ICA stenosis <50 % by velocity criteria. 2. LEFT: ICA stenosis <50 % by velocity criteria. 3. Retrograde flow in the left vertebral artery. ASSESSMENT AND PLAN: 77 year old male with left vertebral artery occlusion on MRA neck scan. I recommend medical management with antiplatelet therapy. Extracted from:Title: General Admission H&P * Author: Casimiro Curtis MD Date: 08/07/18 Impression and Plan Syncopal Episodes Tremors/Shaking Episodes DIMPLE vs DIMPLE on CKD Hypotension Hypothermia Hx of CAD s/p CABG Hx of CHF, Systolic and Diastolic Dysfunction PVD Afib Hx of CVA HTN HLD Plan: -Patient back to baseline -Tele -O2 prn -Trend CE, Reviewed EKG -start pain meds prn -Consult Neuro -Consult Cards -MRI, Carotid U/S, Echo ordered -Monitor Vitals -Low Rate IV Fluids given hx of CHF -F/u Blood Cx, Urine Cx -Consult PT/OT -Reviewed and Ordered Labs -Reviewed and Ordered Imaging -Reconcile Home Meds DVT PPX: Lovenox Patient seen by Casimiro Curtis MD Internal Medicine Hospitalist 08/10/2018 [facility] Plan of Care No Data Provided for This Section Social History Social History Date Source Social History TypeResponse Alcohol Past, Type Beer. Smoking Status Former smoker; Previous treatment: None; Ready to change: No; Concerns about tobacco use in household: No; Exposure to Tobacco Smoke None; Cigarette Smoking Last 365 Days No; Reg Smoking Cessation Counseling No; Started at age: 16.0; Stopped at age: 68; entered on: 08/07/18 08/08/2018 [facility] Family History No Data Provided for This Section Advance Directives No Data Provided for This Section Functional Status No Data Provided for This Section
--- OUTSIDE RECORDS SUMMARY | 2018-12-05 10:53 | XMS REPORT ---
Author Author [facility] Address Unknown Phone Unavailable Care Team Providers Care [employer] Operator Name Role Phone MICHAEL ARCE NATHALIE Unavailable LISS JACKSON M.D. Unavailable Unavailable ELIO SAMPSON M.D. Unavailable Unavailable Problems This patient has no known problems. Allergies, Adverse Reactions, Alerts This patient has no known allergies or adverse reactions. Medications This patient has no known medications. Encounters Start Date/Time End Date/Time Encounter Type Admission Type Attending Clinicians Care Facility Care Department Encounter ID 2018-08-07 12:46:00 2018-08-07 10:03:00 Inpatient E [facility] [id number] 2016-05-18 11:01:00 2016-05-18 11:01:00 Outpatient [facility] [id number] 2016-05-08 17:20:00 2016-05-08 17:20:00 Outpatient [facility] [id number] Results Test Description Test Time Test Comments Text Results Atomic Results Result Comments NM Lung Vent/Perf Imaging 2018-03-05 10:43:21 Patient: MARY CARMEN LEGGETT Date/Time03/05/2018 10:20 CSTReason for ExamDyspneaReportHistory: Shortness of breathNUCLEAR MEDICINE VENTILATION AND PERFUSION LUNG SCAN:COMPARISON: Chest x-ray done todayThe ventilation study was performed with 12 mCi of Xe133 gas.The perfusion study was performed with 5.4 mCi of Tc 99m MAA.There is uniform distribution of activity and uniform washout of the activity throughout both lungs, on the ventilation study.There is uniform distribution of activity throughout both lungs on the perfusion study. No perfusion defects are noted.IMPRESSION:Negative study Final Dictated by: MD Bennett Ramon JulioDictated DT/TM: 03/05/2018 10:42 amSigned by: MD Bennett Ramon JulioSigned (Electronic Signature): 03/05/2018 10:43 am XR Chest 2 Views 2018-03-05 10:16:51 Patient: MARY CARMEN LEGGETT Date/Time03/05/2018 10:04 CSTReason for ExamCongestionReportCHEST 2 VIEWS:HISTORY: Cough, congestionCOMPARISON: 03/03/2018The cardiac silhouette remains mildly enlarged. The mediastinum is unremarkable. Sternotomy sutures are again seen.No new infiltrates are seen in the lungs. There is mild pulmonary vascular engorgement.The bony architecture appears intact, where adequately seen.IMPRESSION:Cardiomegaly and mild pulmonary vascular congestion. Final Dictated by: MD Bennett Ramon JulioDictcelestina DT/TM: 03/05/2018 10:16 amSigned by: MD Bennett Ramon JulioSigned (Electronic Signature): 03/05/2018 10:[address] Brain/Head w/o Contrast 2018-03-03 11:07:23 Patient: MARY CARMEN LEGGETT Date/Time03/03/2018 10:59 CSTReason for ExamStrokeReportTHE OFFICIAL RADIOLOGY REPORT BEGINS BELOW THIS LINEEXAM: Cranial CT.TECHNIQUE: Volumetric helical data acquisition with multiplanar reformations. ALARA principle was utilized. No IV contrast.HISTORY: CVA-like symptoms, weakness, malaise.COMPARISON: 016.FINDINGS: Moderate cerebral atrophy is present. Stable lacunar infarct involving the left basal ganglia is present. Extensive confluent low attenuating changes are seen the periventricular and deep white matter consistent with microangiopathy. No intra-axial mass or hemorrhage or extra-axial fluid collection is seen. No ventricular displacement, effacement, or enlargement is present. Bone windows demonstrate no evidence of destructive lesion or fracture involving the calvarium. Left orbital prosthesis is noted.IMPRESSION:1. No acute intracranial changes are seen when compared with prior study.2. Extensive stable chronic ischemic changes.THE OFFICIAL RADIOLOGY REPORT ENDS ABOVE THIS LINE Final Dictated by: MD Gabrielle, Ryan Nieto DT/TM: 03/03/2018 11:05 amSigned by: MD Anthony William BerrySigned (Electronic Signature): 03/03/2018 11:07 am XR Chest 1 View Frontal 2018-03-03 10:45:46 Patient: MARY CARMEN LEGGETT Date/Time03/03/2018 10:32 CSTReason for ExamShortness of breathReportTHE OFFICIAL RADIOLOGY REPORT BEGINS BELOW THIS LINEEXAM: Chest, 1 View at 10:22.TECHNIQUE: AP upright view.COMPARISON: 02/21/2017.HISTORY: Shortness of breath, cough.FINDINGS: Cardiac size is at the upper limits of normal for AP technique. No congestive changes are seen. No consolidative infiltrate or pleural effusion is identified. Sternotomy wires are present.IMPRESSION: No acute appearing cardiopulmonary changes are seen when compared with prior study.THE OFFICIAL RADIOLOGY REPORT ENDS ABOVE THIS LINE Final Dictated by: MD Gabrielle, Ryan Llamasctcelestina DT/TM: 03/03/2018 10:43 amSigned by: MD Gabrielle, Renzo Zavalagned (Electronic Signature): 03/03/2018 10:45 am XR CHEST SGL 1V, FRONTAL 2016-05-08 14:49:30 Information: Chest pain, dyspnea, hypertension, median sternotomy andcardiac stents cardiac transplantChest portable one viewIn comparison to the prior chest x-ray dated 04/20/2016 the heart remainsenlarged. There has been interval increase in the central pulmonaryvascular congestion and bilateral diffuse perihilar and lower lobeinfiltrates with which are greater on the left. There are smallbilateral p leural effusions. Postoperative median sternotomy changes areagain noted. There are overlying cardiac monitoring leads.IMPRESSION:1. Findings suggesting worsening cardiac decompensation/volume overloadchanges with interstitial pulmonary edema and basilar atelectasischanges greater on the left2. Small bilateral pleural effusions3. Postop median sternotomy
--- OUTSIDE RECORDS SUMMARY | 2018-12-05 10:53 | XMS REPORT | Summary of Care ---
Author Author [facility] Organization [facility] Address Unknown Phone Unavailable Encounter HQ Sofie(FIN) [id number] Date(s): 08/07/18 - 08/09/18 [facility] [address] [place] [address]- [phone] Discharge Disposition: Home or Self Care Attending Physician: Casimiro Curtis MD Admitting Physician: Casimiro Curtis MD Vital Signs 1 2 3 Most recent to oldest [Reference Range]: 167.64 cm (08/07/18 5:34 PM) 167.64 cm (08/07/18 10:05 AM) Height 97.5 DegF (08/09/18 3:04 PM) 97.6 DegF (08/09/18 11:34 AM) 98.1 DegF (08/09/18 7:27 AM) Temperature Oral [96.4-99.1 DegF] 149/67 mmHg *HI* (08/09/18 3:04 PM) 127/62 mmHg (08/09/18 11:34 AM) 165/76 mmHg *HI* (08/09/18 7:27 AM) Blood Pressure [90-140/60-90 mmHg] 17 BRMIN (08/09/18 3:04 PM) 17 BRMIN (08/09/18 11:34 AM) 18 BRMIN (08/09/18 7:27 AM) Respiratory Rate [14-20 BRMIN] 58 bpm *LOW* (08/09/18 3:04 PM) 96 bpm (08/09/18 11:34 AM) 66 bpm (08/09/18 7:27 AM) Peripheral Pulse Rate [60-100 bpm] 72.784 kg (08/09/18 9:00 AM) 81.818 kg (08/07/18 5:34 PM) 77.273 kg (08/07/18 10:05 AM) Weight 29.11 m2 (08/07/18 5:34 PM) 27.5 m2 (08/07/18 10:05 AM) Body Mass Index Problem List Condition Effective Dates Status Health Status Informant Severe Active Acute ; protein-calorie malnutrition(Confirm ed) Allergies, Adverse Reactions, Alerts No Known Medication Allergies Medications acetaminophen 650 mg, 2 tab, Route: PO, Drug form: TAB, Q4H, Dosing Weight 77.273, kg, PRN Troy n 1-3/Temp > 100.4 F, Start date: 08/07/18 15:33:00 CDT, Duration: 30 day, Stop date: 09/06/18 15:32:00 CDT Notes: Do not exceed 4 gm/day. (Same as: Tylenol) Start Date: 08/07/18 Stop Date: 08/09/18 Status: Discontinued aspirin 325 mg, 1 tab, Route: PO, Drug form: TAB, ONCE, Dosing Weight 77.273, kg, Priori ty: STAT, Start date: 08/07/18 11:55:00 CDT, Stop date: 08/07/18 11:55:00 CDT Notes: Take with food. Start Date: 08/07/18 Stop Date: 08/07/18 Status: Completed aspirin 81 mg tablet, enteric coated 81 mg, 1 tab, Route: PO, Drug form: ECTAB, Daily, Dosing Weight 81.818, kg, Prio rity: NOW, Start date: 08/08/18 11:24:00 CDT, Duration: 30 day, Stop date: 09/07 9:00:00 CDT Notes: Do not crush or chew.(Same As: Ecotrin) Start Date: 08/08/18 Stop Date: 08/09/18 Status: Discontinued aspirin 81 mg tablet, enteric coated 81 mg=1 tab, PO, Daily, # 90 tab, 3 Refill(s) Start Date: 08/08/18 Status: Ordered atorvastatin 40 mg, 1 tab, Route: PO, Drug form: TAB, Daily, Dosing Weight 81.818, kg, Start date: 08/09/18 9:00:00 CDT, Duration: 30 day, Stop date: 09/07/18 9:00:00 CDT Notes: (Same as: Lipitor) Start Date: 08/09/18 Stop Date: 08/09/18 Status: Discontinued atorvastatin 40 mg oral tablet 40 mg=1 tab, PO, Daily, 0 Refill(s) Start Date: 08/08/18 Status: Ordered benazepril 40 mg oral tablet 40 mg=1 tab, PO, Daily, 0 Refill(s) Start Date: 08/07/18 Stop Date: 08/07/18 Status: Completed calcium carbonate 500 mg, 1 tab, Route: CHEW, Drug form: CHEWTAB, BID-Meals, Dosing Weight 81.818, kg, Start date: 08/08/18 17:00:00 CDT, Duration: 30 day, Stop date: 09/07/18 8: 00:00 CDT Notes: (Same As: Tums)Calcium Carbonate 500 hq=120 mg elemental calcium Dose=_ mg calcium carbonate ( mg elemental calcium) Start Date: 08/08/18 Stop Date: 08/09/18 Status: Discontinued calcium carbonate 400 mg oral tablet, chewable 400 mg=1 tab, CHEW, BID, 0 Refill(s) Start Date: 08/08/18 Status: Ordered Coricidin HBP Nighttime Multi-Symptom Cold 1 tab, PO, Q6H, PRN Cough, 0 Refill(s) Start Date: 08/07/18 Stop Date: 08/07/18 Status: Completed Dextrose 50% Syringe 25 gm, 50 mL, Route: IVP, Drug Form: INJ, Dosing Weight 77.273, kg, PRN, PRN Blo od Glucose Results, Start date: 08/07/18 15:33:00 CDT, Duration: 30 day, Stop da te: 09/06/18 15:32:00 CDT Start Date: 08/07/18 Stop Date: 08/09/18 Status: Discontinued Dextrose 50% Syringe 12.5 gm, 25 mL, Route: IVP, Drug Form: INJ, Dosing Weight 77.273, kg, PRN, PRN B lood Glucose Results, Start date: 08/07/18 15:33:00 CDT, Duration: 30 day, Stop date: 09/06/18 15:32:00 CDT Start Date: 08/07/18 Stop Date: 08/09/18 Status: Discontinued enoxaparin 30 mg, 0.3 mL, Route: SUB-Q, Drug form: INJ, [id number], Dosing Weight 77.273, kg, Start date: 08/07/18 18:33:00 CDT, Stop date: 09/05/18 18:33:00 CDT Notes: (Same as: Lovenox) Start Date: 08/07/18 Stop Date: 08/09/18 Status: Discontinued furosemide 40 mg oral tablet 40 mg=1 tab, PO, Daily, # 30 tab, 0 Refill(s) Start Date: 08/08/18 Status: Ordered glucagon 1 mg, Route: IM, Drug form: PDR/INJ, PRN, Dosing Weight 77.273, kg, PRN Blood Gl ucose Results, Start date: 08/07/18 15:33:00 CDT, Duration: 30 day, Stop date: 0 09/06/18 15:32:00 CDT Start Date: 08/07/18 Stop Date: 08/09/18 Status: Discontinued hydrALAZINE 10 mg, 0.5 mL, Route: IV, Drug form: INJ, Q4H, Dosing Weight 77.273, kg, PRN Hyp ertension, Start date: 08/07/18 17:15:00 CDT, Duration: 30 day, Stop date: 09/06 17:14:00 CDT Notes: (Same as: Apresoline)Push over 5 minutes Start Date: 08/07/18 Stop Date: 08/09/18 Status: Discontinued Keppra + Sodium Chloride 0.9% IV 100 mL 1,000 mg, Route: IV, ONCE, Dosing Weight 77.273, kg, Start date: 08/07/18 10:24: 00 CDT, Stop date: 08/07/18 10:24:00 CDT Notes: Same as KeppraMix with 100 mL NS, LR or D5W MEDICATION WASTE Prod uct Size: 500 mgProduct Wasted: ___ mg Start Date: 08/07/18 Stop Date: 08/07/18 Status: Completed lisinopril 2.5 mg oral tablet 2.5 mg=1 tab, PO, Daily, # 30 tab, 0 Refill(s) Start Date: 08/08/18 Status: Ordered Lopressor 2.5 mg, 2.5 mL, Route: IVP, Drug form: INJ, Q3H, Dosing Weight 77.273, kg, PRN T achycardia, Start date: 08/07/18 17:15:00 CDT, Duration: 30 day, Stop date: 08/20 17:14:00 CDT Notes: (Same as: Lopressor)Push over 2 minutes Start Date: 08/07/18 Stop Date: 08/09/18 Status: Discontinued metoprolol tartrate 50 mg, 1 tab, Route: PO, Drug form: TAB, BID, Dosing Weight 81.818, kg, Start da te: 08/08/18 21:00:00 CDT, Duration: 30 day, Stop date: 09/07/18 9:00:00 CDT Notes: (Same as: Lopressor) Start Date: 08/08/18 Stop Date: 08/09/18 Status: Discontinued metoprolol tartrate 50 mg oral tablet 50 mg=1 tab, PO, BID, # 60 tab, 0 Refill(s) Start Date: 08/08/18 Status: Ordered morphine Sulfate 2 mg, 1 mL, Route: IVP, Drug form: SOLN, Q2H, Dosing Weight 77.273, kg, PRN Ches t Pain, Start date: 08/07/18 17:15:00 CDT, Duration: 30 day, Stop date: 09/06/18 17:14:00 CDT Start Date: 08/07/18 Stop Date: 08/09/18 Status: Discontinued Nitrostat 0.4 mg sublingual tablet 0.4 mg, 1 tab, Route: SL, Drug form: TAB, Q5Min, Dosing Weight 77.273, kg, PRN C hest Pain, Start date: 08/07/18 17:15:00 CDT, Duration: 3 doses or times, Stop d ate: Limited # of times Notes: (Same as:Nitroquick, Nitrostat)"Do Not Crush" Sublingual tablet Start Date: 08/07/18 Stop Date: 08/09/18 Status: Discontinued [place] 5/325 oral tablet 1 tab, Route: PO, Drug Form: TAB, Dosing Weight 77.273, kg, Q6H, PRN Pain Score 4-6, Start date: 08/07/18 15:36:00 CDT, Duration: 30 day, Stop date: 09/06/18 15 :35:00 CDT Notes: (Same as: [place] 325/5) Do not exceed 4gm/day of acetaminophen. Start Date: 08/07/18 Stop Date: 08/09/18 Status: Discontinued Plavix 75 mg, 1 tab, Route: PO, Drug form: TAB, Daily, Dosing Weight 81.818, kg, Priori ty: NOW, Start date: 08/08/18 11:24:00 CDT, Duration: 30 day, Stop date: 9 9:00:00 CDT Notes: (Same As: Plavix) Start Date: 08/08/18 Stop Date: 08/09/18 Status: Discontinued Plavix 75 mg oral tablet 75 mg=1 tab, PO, Daily, # 30 tab, 0 Refill(s) Start Date: 08/08/18 Status: Ordered Rocephin + sterile water 10 mL 1 gm, Route: IVP, ONCE, Dosing Weight 77.273, kg, Priority: STAT, Start date: 10:24:00 CDT, Stop date: 08/07/18 10:24:00 CDT, ABX Indication: Other (sp ecify in Comments) Notes: (Same As: Rocephin).Use with 100 mL NS and infuse over 30 min MEDICA TION WASTE Product Size: 1000 mgProduct Wasted: ___ mg Start Date: 08/07/18 Stop Date: 08/07/18 Status: Completed Saline Flush 0.9% 10 mL, Route: IVP, Drug Form: INJ, Dosing Weight 77.273, kg, PRN, PRN Line Flush , Start date: 08/07/18 10:24:00 CDT, Duration: 30 day, Stop date: 09/06/18 10:23 :00 CDT Notes: Same as: BD Posiflush Sterile Start Date: 08/07/18 Stop Date: 08/09/18 Status: Discontinued Sodium Chloride 0.9% (Bolus) IV 1,000 mL, 1000 ml/hr, Infuse Over: 1 hr, Route: IV, 1,000, Drug form: INJ, ONCE, Priority: STAT, Dosing Weight 77.273 kg, Start date: 08/07/18 10:24:00 CDT, Stop date: 08/07/18 10:24:00 CDT Start Date: 08/07/18 Stop Date: 08/07/18 Status: Completed Sodium Chloride 0.9% IV 1,000 mL 1,000 mL, Rate: 50 ml/hr, Infuse over: 20 hr, Route: IV, Dosing Weight 77.273 kg , Total Volume: 1,000, Start date: 08/07/18 15:34:00 CDT, Duration: 30 day, Stop date: 09/06/18 15:33:00 CDT, 1.92, m2 Start Date: 08/07/18 Stop Date: 08/08/18 Status: Discontinued terbutaline 0.25 mg, 0.25 mL, Route: SUB-Q, Drug form: INJ, Q6H, Dosing Weight 77.273, kg, P RN Bradycardia, Start date: 08/07/18 17:15:00 CDT, Duration: 30 day, Stop date: 09/06/18 17:14:00 CDT Notes: DO NOT USE IN FACILITY COORDINATOR AREA(Same As: Osorio) Start Date: 08/07/18 Stop Date: 08/09/18 Status: Discontinued trazodone 50 mg, 1 tab, Route: PO, Drug form: TAB, ONCE, Dosing Weight 81.818, kg, Start d ate: 08/07/18 23:10:00 CDT, Stop date: 08/07/18 23:10:00 CDT Notes: (Same As: Michelle) Start Date: 08/07/18 Stop Date: 08/07/18 Status: Completed Xarelto 15 mg oral tablet 15 mg=1 tab, PO, QPM, 0 Refill(s) Start Date: 08/07/18 Stop Date: 08/07/18 Status: Completed Results 1 2 3 Most recent to oldest [Reference Range]: 5.2 K/CMM (08/07/18 10:34 AM) Neutrophils # [1.5-8.1 K/CMM] 1.9 K/CMM (08/07/18 10:34 AM) Lymphocytes # [1.0-5.5 K/CMM] 0.6 K/CMM (08/07/18 10:34 AM) Monocytes # [0.0-0.8 K/CMM] 0.7 K/CMM *HI* (08/07/18 10:34 AM) Eosinophils # [0.0-0.5 K/CMM] 0.1 K/CMM (08/07/18 10:34 AM) Basophils # [0.0-0.2 K/CMM] 4.4 mg/L *NA* (08/07/18 6:33 PM) CRP, High Sensitivity 328 pg/mL *HI* (08/07/18 6:33 PM) 192 pg/mL *HI* (08/07/18 10:34 AM) BNP [<=100 pg/mL] >0.4 mg/dL (08/08/18 3:52 AM) Bili Indirect [0.0-1.0 mg/dL] 38 mL/min/1.73m2 1 *NA* (08/09/18 5:10 AM) 31 mL/min/1.73m2 2 *NA* (08/08/18 3:52 AM) 23 mL/min/1.73m2 3 *NA* (08/07/18 10:34 AM) eGFR O POS *Unknown* (08/07/18 10:34 AM) ABO/Rh 0.9 (08/08/18 3:52 AM) 0.9 (08/07/18 10:34 AM) A/G Ratio [0.7-1.6] Negative (08/07/18 10:34 AM) Antibody Scrn 3.1 g/dL *LOW* (08/08/18 3:52 AM) 3.4 g/dL *LOW* (08/07/18 10:34 AM) Albumin Lvl [3.5-5.0 g/dL] 126 unit/L (08/08/18 3:52 AM) 132 unit/L (08/07/18 10:34 AM) Alk Phos [39-136 unit/L] 20 unit/L (08/08/18 3:52 AM) 23 unit/L (08/07/18 10:34 AM) ALT [0-65 unit/L] 18.0 uMol/L (08/07/18 10:34 AM) Ammonia [<=45.0 uMol/L] 14.3 mEq/L (08/09/18 5:10 AM) 13.0 mEq/L (08/08/18 3:52 AM) 13.8 mEq/L (08/07/18 10:34 AM) AGAP [10.0-20.0 mEq/L] 10 unit/L (08/08/18 3:52 AM) 11 unit/L (08/07/18 10:34 AM) AST [0-37 unit/L] 19 (08/07/18 10:34 AM) B/C Ratio [6-25] 1.0 % (08/07/18 10:34 AM) Basophils [0.0-1.0 %] 30 mg/dL *HI* (08/09/18 5:10 AM) 43 mg/dL *HI* (08/08/18 3:52 AM) 50 mg/dL *HI* (08/07/18 10:34 AM) BUN [7-22 mg/dL] 8.3 mg/dL *LOW* (08/09/18 5:10 AM) 8.1 mg/dL *LOW* (08/08/18 3:52 AM) 8.5 mg/dL (08/07/18 10:34 AM) Calcium Lvl [8.5-10.5 mg/dL] 2.67 *LOW* (08/07/18 6:33 PM) CHD Risk [4.00-7.30] 104 mg/dL (08/07/18 6:33 PM) Chol [<=199 mg/dL] 112 mEq/L *HI* (08/09/18 5:10 AM) 111 mEq/L *HI* (08/08/18 3:52 AM) 109 mEq/L (08/07/18 10:34 AM) Chloride Lvl [95-109 mEq/L] 21 mEq/L *LOW* (08/09/18 5:10 AM) 22 mEq/L *LOW* (08/08/18 3:52 AM) 24 mEq/L (08/07/18 10:34 AM) CO2 [24-32 mEq/L] 1.68 mg/dL *HI* (08/09/18 5:10 AM) 1.97 mg/dL *HI* (08/08/18 3:52 AM) 2.59 mg/dL *HI* (08/07/18 10:34 AM) Creatinine Lvl [0.50-1.40 mg/dL] <0.1 mg/dL (08/08/18 3:52 AM) Bili Direct [0.0-0.3 mg/dL] 8.6 % *HI* (08/07/18 10:34 AM) Eosinophils [0.0-4.0 %] <.003 % *NA* (08/07/18 10:34 AM) Etoh (%) <3 mg/dL *NA* (08/07/18 10:34 AM) Ethanol Lvl 3.6 g/dL (08/08/18 3:52 AM) 3.9 g/dL (08/07/18 10:34 AM) Globulin [2.7-4.2 g/dL] 81 mg/dL (08/09/18 5:10 AM) 74 mg/dL (08/08/18 3:52 AM) 122 mg/dL *HI* (08/07/18 10:34 AM) Glucose Lvl [70-99 mg/dL] 35.5 % *LOW* (08/07/18 10:34 AM) Hct [42.0-54.0 %] 39 mg/dL *LOW* (08/07/18 6:33 PM) HDL [>=61 mg/dL] 11.7 g/dL *LOW* (08/07/18 10:34 AM) Hgb [14.0-18.0 g/dL] 6.1 % *HI* (08/07/18 6:33 PM) Hgb A1C [<=5.6 %] 1.01 (08/07/18 10:34 AM) INR [0.85-1.17] 4.3 mEq/L (08/09/18 5:10 AM) 4.0 mEq/L (08/08/18 3:52 AM) 4.8 mEq/L (08/07/18 10:34 AM) Potassium Lvl [3.5-5.1 mEq/L] 1.4 mMol/L (08/07/18 10:34 AM) Lactic Acid Lvl [0.5-2.2 mMol/L] 43 mg/dL (08/07/18 6:33 PM) LDL (Calculated) [<=99 mg/dL] 22.4 % (08/07/18 10:34 AM) Lymphocytes [20.0-40.0 %] 30.6 pg (08/07/18 10:34 AM) MCH [27.0-31.0 pg] 32.8 g/dL (08/07/18 10:34 AM) MCHC [32.0-36.0 g/dL] 93.3 fL (08/07/18 10:34 AM) MCV [80.0-94.0 fL] 2.4 mg/dL (08/09/18 5:10 AM) 2.2 mg/dL (08/08/18 3:52 AM) 2.5 mg/dL *HI* (08/07/18 6:33 PM) Magnesium Lvl [1.8-2.4 mg/dL] 6.9 % (08/07/18 10:34 AM) Monocytes [2.0-12.0 %] 8.7 fL (08/07/18 10:34 AM) MPV [7.4-10.4 fL] 143 mEq/L (08/09/18 5:10 AM) 142 mEq/L (08/08/18 3:52 AM) 142 mEq/L (08/07/18 10:34 AM) Sodium Lvl [135-145 mEq/L] 3.7 mg/dL (08/07/18 6:33 PM) Phosphorus [2.5-4.5 mg/dL] 188 K/CMM (08/07/18 10:34 AM) Platelet [133-450 K/CMM] 61.1 % (08/07/18 10:34 AM) Segs [45.0-75.0 %] 16.6 mg/dL *LOW* (08/07/18 6:33 PM) Prealbumin [18.0-45.0 mg/dL] 6.7 g/dL (08/08/18 3:52 AM) 7.3 g/dL (08/07/18 10:34 AM) Total Protein [6.4-8.4 g/dL] 13.1 seconds (08/07/18 10:34 AM) PT [12.0-14.7 seconds] 29.3 seconds (08/07/18 10:34 AM) PTT [22.9-35.8 seconds] 3.81 M/CMM *LOW* (08/07/18 10:34 AM) RBC [4.70-6.10 M/CMM] 14.8 % *HI* (08/07/18 10:34 AM) RDW [11.5-14.5 %] 31 mm/hr *HI* (08/07/18 6:33 PM) Sed Rate [0-15 mm/hr] 0.5 mg/dL (08/08/18 3:52 AM) 0.5 mg/dL (08/07/18 10:34 AM) Bili Total [0.2-1.3 mg/dL] 111 mg/dL (08/07/18 6:33 PM) Trig [<=149 mg/dL] 0.12 ng/mL (08/07/18 10:08 PM) 0.11 ng/mL (08/07/18 4:51 PM) 0.10 ng/mL (08/07/18 10:34 AM) Troponin-I [0.00-0.40 ng/mL] Negative *NA* (08/07/18 11:01 AM) UA Bili [Negative] Negative (08/07/18 11:01 AM) UA Blood [Negative] Ltyellow *NA* (08/07/18 11:01 AM) UA Color Negative mg/dL *NA* (08/07/18 11:01 AM) UA Glucose [Negative mg/dL] 3 /LPF *HI* (08/07/18 11:01 AM) UA Hyal Cast [0-2 /LPF] Negative mg/dL *NA* (08/07/18 11:01 AM) UA Ketones [Negative mg/dL] Negative (08/07/18 11:01 AM) UA Leuk Est [Negative] Negative (08/07/18 11:01 AM) UA Nitrite [Negative] 6.0 (08/07/18 11:01 AM) UA pH [5.0-8.0] Negative mg/dL (08/07/18 11:01 AM) UA Protein [Negative mg/dL] 1 /HPF (08/07/18 11:01 AM) UA RBC [0-2 /HPF] 1.008 (08/07/18 11:01 AM) UA Spec Grav [<=1.030] None Seen *NA* (08/07/18 11:01 AM) UA Sq Epi Clear (08/07/18 11:01 AM) UA Turbidity [Clear] <=1.0 mg/dL *NA* (08/07/18 11:01 AM) UA Urobilinogen [0.1-1.0 mg/dL] 1 /HPF (08/07/18 11:01 AM) UA WBC [0-5 /HPF] 8.5 mg/dL *HI* (08/07/18 6:33 PM) Uric Acid [3.8-8.0 mg/dL] 39.1 ng/mL (08/07/18 6:33 PM) Vitamin D, 25-OH, Total [30.0-100.0 ng/mL] 8.5 K/CMM (08/07/18 10:34 AM) WBC [3.7-10.4 K/CMM] 22 *NA* (08/07/18 6:33 PM) VLDL 1Result Comment: The eGFR is calculated using the [...] from the National Kidney Disease Education Program ( NKDEP) which additionally recommends that when the eGFR is used in patients with extremes of body mass index for purposes of drug dosing, the eGFR should be mul tiplied by the estimated BMI. 2Result Comment: The eGFR is calculated using the [...] from the National Kidney Disease Education Program ( NKDEP) which additionally recommends that when the eGFR is used in patients with extremes of body mass index for purposes of drug dosing, the eGFR should be mul tiplied by the estimated BMI. 3Result Comment: The eGFR is calculated using the [...] from the National Kidney Disease Education Program ( NKDEP) which additionally recommends that when the eGFR is used in patients with extremes of body mass index for purposes of drug dosing, the eGFR should be mul tiplied by the estimated BMI. Immunizations No data available for this section Procedures Procedure Date Related Diagnosis Body Site Status Bypass1 Completed 1heart Social History Social History Type Response Alcohol Past, Type Beer. Smoking Status Former smoker; Previous treatment: None; Ready to change: No; Concerns about tobacco use in household: No; Exposure to Tobacco Smoke None; Cigarette Smoking Last 365 Days No; Reg Smoking Cessation Counseling No; Started at age: 16.0; Stopped at age: 68; entered on: 08/07/18 Assessment and Plan Extracted from: Title: Clinical Document Author: Gricel Bolivar DO Date: 08/09/18 Progress Daily [facility] Gricel Bolivar DO RM: 131 - 1P, SE [id number] CARMEN LEE77y (: 1940) Ji [facility]: [id number] Attending: Casimiro Curtis MDPhone: Service: Internal Medicine PCP STEPHEN FELDMAN Reason for Admission: ALTERED MENTAL STATUS, HYPOTHERMIA Working DRG: Code status: None Specified=FULL CODECurrent diet: Isolation: No Isolation/Standard Precautions Allergies: No Known Medication Allergies SUBJECTIVE SLEEPY BUT NO COMPLAINTS EXAM VS NOTED GENERAL: NAD LUNGS: Have a couple of rhonchi good deep breath. CARDIAC: RRR. chest well-healed bypass scar. ABDOMEN: Obese but bowel sounds are audible. EXTREMITIES: Intact with only trace edema. PLAN & TREATMENT MONITOR FLUID STATUS CONSIDER ANTICOAG BUT THINK DANGER OF FALL MORE THAN PAFIB CVA. WITH MENTAL STATUS NOT A GOOD CANDIDATE FOR ICD. DIAGNOSES & PROBLEMS ? 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 EF 2 MILD TRICUSPID [...] necessary (Yes/No): 24hr Labs 08/09 0510 Glucose Lvl81 BUN30 H Creatinine Lvl1.68 H Sodium Zvp559 Potassium Lvl4.3 Chloride Teu424 H CO221 L AGAP14.3 Calcium Lvl8.3 L eGFR38 Magnesium Lvl2.4 08/07 1833 TSH1.400 T3 Eqfxnd72 T46.5 FTI2.0 Vitamin D, 25-OH, Tota39.1 CRP, High Sensitivity4.4 Onlaytfovr33.6 L VitalsTmp(F)[id number] 08/09 07:[id number]/039122--- 08/09 03:2498.033639/108922--- 08/08 23:[id number]--- 08/08 19:[id number]--- 08/08 15:[id number]--- 24 Hr Tmax: 98.7F (37.06c) at 08/08 23:34Vital Signs are the last 5 in the past 48 hours. DateWt(kg)Wt(lb)Ht(cm)Ht(in)Method 08/07 (initial) 77.27 170.00Estimated 08/07167.64 66.00Stated I&ORecordInOutBal 08/723hr Tot 500 0 500 08/623hr Tot 1950 0 1950 Medications (18) Active Scheduled Meds (6): 08/08/18 aspirin (aspirin 81 mg tablet, enteric coated) 81 mg PO Daily 08/09/18 atorvastatin 40 mg PO Daily 08/08/18 calcium carbonate 500 mg CHEW BID-Meals 08/08/18 clopidogrel (Plavix) 75 mg PO Daily 08/07/18 enoxaparin 30 mg SUB-Q [id number] 08/08/18 metoprolol (metoprolol tartrate) 50 mg PO BID Unscheduled Meds: None PRN Meds (11): 08/07/18 Dextrose 50% in Water IV (Dextrose 50% Syringe) 12.5 gm IVP PRN 08/07/18 Dextrose 50% in Water IV (Dextrose 50% Syringe) 25 gm IVP PRN 08/07/18 acetaminophen-hydrocodone ([place] 5/325 oral tablet) 1 tab PO Q6H [...] mg PO ONCE Continuous Infusions: None Extracted from: Title: Clinical Document Author: Adrian Cao MD Date: [...] or rashes. No change ALLERGIES: Allergies (1) ActiveReaction No Known Medication AllergiesNone documented MEDICATION LIST: Scheduled Meds (6): 08/08/18 aspirin (aspirin 81 mg tablet, enteric coated) 81 mg PO Daily 08/09/18 atorvastatin 40 mg PO Daily 08/08/18 calcium carbonate 500 mg CHEW BID-Meals 08/08/18 clopidogrel (Plavix) 75 mg PO Daily 08/07/18 enoxaparin 30 mg SUB-Q [id number] 08/08/18 metoprolol (metoprolol tartrate) 50 mg PO [...] No. Cessation Counseling Provided? No. PHYSICAL EXAM: VitalsTmp(F)[id number] 08/09 07:[id number]--- 08/09 03:2498.102980/436149--- 08/08 23:3498.265204/293789--- 08/08 19:3698.694359/[id number]--- 08/08 15:4398.336072/[id number]--- 24 Hr Tmax: 98.7F (37.06c) at 08/08 23:34Vital Signs are the last 5 in the past 48 hours. HEAD AND NECK:NCAT EYES:EOMI CHEST:CTA CARDIAC:RRR ABDOMEN:Soft VASCULAR EXAM:Well perfused extremities LABORATORY DATA: Labs (Last four charted values) WBC 8.5(AUGUST 07) Hgb L 11.7(AUGUST 07) Hct L 35.5(AUGUST 07) Plt 188(AUGUST 07) Na 143(AUGUST 09)142(AUGUST 08)142(AUGUST 07) K 4.3(AUGUST 09)4.0(AUGUST 08)4.8(AUGUST 07) CO2 L 21(AUGUST 09)L 22(AUGUST 08)24(AUGUST 07) Cl H 112(AUGUST 09)H 111(AUGUST 08)109(AUGUST 07) Cr H 1.68(AUGUST 09)H 1.97(AUGUST 08)H 2.59(AUGUST 07) BUN H 30(AUGUST 09)H 43(AUGUST 08)H 50(AUGUST 07) Glucose Random 81(AUGUST 09)74(AUGUST 08)H 122(AUGUST 07) Mg 2.4(AUGUST 09)2.2(AUGUST 08)H 2.5(AUGUST 07) Phos 3.7(AUGUST 07) Ca L 8.3(AUGUST 09)L 8.1(AUGUST 08)8.5(AUGUST 07) PT 13.1(AUGUST 07) INR 1.01(AUGUST 07) PTT 29.3(AUGUST 07) Troponin 0.12(AUGUST 07)0.11(AUGUST 07)0.10(AUGUST 07) RADIOLOGIC AND VASCULAR IMAGING: MRA neck: [...] recommend medical management with antiplatelet therapy. Extracted from: Title: General Admission H&P * Author: Casimiro Curtis [...]
[2018-12-05 11:21] LABS: BASOPHILS # (AUTO) 0.1 (0.0-0.1); BASOPHILS % 0.9 % (0.0-1.0); EOSINOPHILS # (AUTO) 0.5 (0.0-0.4); HEMATOCRIT 38.9 % (38.2-49.6); HEMOGLOBIN 12.7 g/dL (14.0-18.0); LYMPHOCYTES % 26.1 % (18.0-39.1); MEAN CORPUSCULAR HEMOGLOBIN 30.6 pg (28-32); MEAN CORPUSCULAR HGB CONC 32.6 g/dL (31-35); MEAN CORPUSCULAR VOLUME 93.7 fL (81-99); MONOCYTES # (AUTO) 0.5 (0.2-0.8); MONOCYTES % 6.4 % (4.4-11.3); NEUTROPHILS # (AUTO) 4.5 (2.1-6.9); NEUTROPHILS % 58.7 % (38.7-80.0); PLATELET COUNT 169 x10e3/uL (140-360); RED BLOOD COUNT 4.15 x10e6/uL (4.3-5.7); RED CELL DISTRIBUTION WIDTH 13.1 % (11.7-14.4)
[2018-12-05] MEDS ORDERED: METOPROLOL TART50 MG PO (11:21)
[2018-12-05] MEDS ORDERED: CLOPIDOGREL75 MG PO (11:21)
[2018-12-05] MEDS ORDERED: ASPIR 8181 MG PO (11:21)
[2018-12-05] MEDS ORDERED: LASIX40 MG PO (11:21)
[2018-12-05] MEDS ORDERED: ATORVASTATIN CA20 MG PO (11:21)
[2018-12-05] MEDS ORDERED: LISINOPRIL2.5 MG PO (11:21)
[2018-12-05] MEDS ORDERED: CIPROFLOXACIN2.5 ML (11:22)
[2018-12-05 11:32] LABS: INR 0.92; PROTHROMBIN TIME 12.9 seconds (11.9-14.5)
[2018-12-05 11:33] LABS: PARTIAL THROMBOPLASTIN TIME 25.6 seconds (23.8-35.5)
[2018-12-05 11:42] LABS: ALBUMIN 3.5 g/dL (3.5-5.0); ANION GAP 14.2 mmol/L (8-16); CREATININE, SERUM 2.14 mg/dL (0.72-1.25); POTASSIUM 4.2 mmol/L (3.5-5.1)
[2018-12-05 11:47] LABS: CREATINE KINASE MB 1.5 ng/mL (0-5.0)
--- NOTE | 2018-12-05 12:08 | Diagnostic Imaging Report ---
EXAM: CHEST SINGLE (PORTABLE) DATE: 12/05/2018 11:05 AM INDICATION: Dizziness COMPARISON: None FINDINGS: There are postsurgical changes from median sternotomy. The trachea is midline. There is mild prominence of the interstitium and central pulmonary vasculature. There are mild bibasilar opacities suggestive of atelectasis. There is no evidence for large focal consolidation, pneumothorax, or significant pleural effusion. The cardiac silhouette appears prominent. Mediastinal contours are unremarkable. No acute osseous abnormalities identified. IMPRESSION: Mild prominence of the interstitium and central pulmonary vasculature which can be seen in the setting of edema. No evidence for focal consolidation or significant pleural effusion. Signed by: Dr. Delroy Venegas MD on 12/05/2018 12:05 PM
--- NOTE | 2018-12-05 12:19 | Diagnostic Imaging Report ---
Examination: CT head without contrast Clinical Indication: Syncopal episode; dizziness.. Technique: Transaxial noncontrast images from the skull base through the vertex were obtained. Sagittal and coronal reformatted images were done. Dose modulation, iterative reconstruction, and/or weight based adjustment of the mA/kV was utilized to reduce the radiation dose to as low as reasonably achievable. Comparison: None. Findings: Scalp: No abnormalities. Bones: Intact. No fractures. No blastic or lytic lesions. Brain sulci: Mild volume loss for patient's age. Ventricles: No hydrocephalus. Extra-axial space: No abnormalities. Parenchyma: There are patchy areas of low-attenuation within subcortical and periventricular white matter, nonspecific, but could represent microvascular ischemic disease. A chronic infarct is demonstrated in the left striatocapsular region (left caudate head, anterior limb of the left internal capsule and putamen). No masses, hemorrhage, or acute or chronic cortical based vascular insults. Suprasellar region: No abnormalities. Craniocervical junction: The foramen magnum is patent. No Chiari one malformation. Incidental findings: Atherosclerotic calcification of the cavernous and supraclinoid internal carotid and V4 segments of the bilateral vertebral arteries. Left phthisis bulbi. Impression: 1. No acute intracranial finding. 2. Chronic microvascular ischemic change. Chronic left striatocapsular lacunar infarct. Signed by: Dr. Lily Galan M.D. on 12/05/2018 12:16 PM
[2018-12-05 13:31] LABS: BILIRUBIN,URINE NEGATIVE (NEGATIVE); CLARITY,URINE CLEAR (CLEAR); COLOR,URINE YELLOW (YELLOW); KETONES,URINE NEGATIVE (NEGATIVE); LEUKOCYTE ESTERASE ,URINE NEGATIVE (NEGATIVE); NITRITE,URINE NEGATIVE (NEGATIVE); PROTEIN,URINE DIPSTICK NEGATIVE (NEGATIVE); URINE UROBILINOGEN 0.2 mg/dL (0.2 - 1)
[2018-12-05 14:02] LABS: BACTERIA,URINE RARE /HPF; EPITHELIAL CELLS,URINE RARE /LPF
[2018-12-05] MEDS ORDERED: ASPIRIN 81 MG CHEW TAB PO ONE (15:00)
[2018-12-05 15:26] LABS: CREATINE KINASE MB 1.3 ng/mL (0-5.0)
== END 2018-12-05 16:30 | disposition home or self-care (01) ==
LOC: ER 10:49
DX: R42 Dizziness and giddiness (principal); Z86.73 Personal history of transient ischemic attack (TIA), and cerebral infarction without residual deficits; Z95.1 Presence of aortocoronary bypass graft
CPT/HCPCS: 36415; 70450; 71045; 80053; 81001; 82550; 82553; 84484; 85025; 85610; 85730; 99284